=== PATIENT | male | born 2000 | race Caucasian/White ===

== ENCOUNTER → 2018-11-10 13:27 | Outpatient (CLI) | payer OTHER, SELFPAY ==
[2018-11-10 14:36] LABS: Monotest Positive (Negative)
== END ==
PROVIDERS: Visit Provider Physician Assistant
DX: J02.9 Acute pharyngitis, unspecified (principal)
CPT/HCPCS: 86318; 87070; 87147

== ENCOUNTER 2020-02-19 02:48 | Emergency (ER) | payer OTHER, SELFPAY ==
--- NOTE | 2020-02-19 03:03 | DI.RAD.S_ITS ---
PROCEDURE: XR CLAVICLE RT INDICATIONS: right shoulder pain/tenderness TECHNIQUE: 2 views of the clavicle were acquired. COMPARISON: CR, SHOULDER MIN 2VW (RT), 06/05/2012, 11:58. FINDINGS: Bones: No fractures or dislocations. No suspicious bony lesions. Soft tissues: No suspicious soft tissue calcifications. IMPRESSION: No trauma found. Dictated by: Troy Joe M.D. on 02/19/2020 at 8:18 Approved by: Troy Joe M.D. on 02/19/2020 at 8:18
[2020-02-19 03:04] VITALS: BP 147/82; PULSE 73; RESP 16; TEMP 36.9; O2SAT 99
--- NOTE | 2020-02-19 03:05 | ED_ITS ---
HPI - Extremity Injury (Upper) General Chief Complaint: Extremity Injury, Upper Stated Complaint: thinks broke right collerbone Time Seen by Provider: 02/19/20 02:55 Source: patient Mode of arrival: Ambulatory Limitations: no limitations History of Present Illness HPI narrative: 19-year-old male nonsmoker without medical history presents with a chief complaint of right shoulder pain since an injury a few days ago. He states that he was trying to get a large door to open and he forcefully rammed his right shoulder into it in attempt to move it. Since then he has had significant pain in his anterior right shoulder. His pain is worse with motion and improves with rest. He denies numbness, tingling or weakness. He denies other injury and is otherwise well and free of complaint MD complaint: injury to: right and shoulder Onset (ago): day(s) Other Extremity Injury: Right: shoulder Other injuries: none Handedness: right Place: home Relieving factors: rest Exacerbating factors: movement of extremity Context: direct blow Associated symptoms: denies other symptoms Treatments prior to arrival: NSAIDS Related Data Home Medications Medication Instructions Recorded Confirmed No Known Home Medications 11/10/18 11/10/18 Allergies Allergy/AdvReac Type Severity Reaction Status Date / Time No Known Drug Allergies Allergy Verified 11/10/18 13:20 Review of Systems Constitutional Constitutional: Denies chills, Denies fatigue, Denies fever(s), Denies frequent falls, Denies lethargy and Denies weakness Eyes Eyes: Denies change in vision, Denies eye discharge, Denies irritation and Denies loss of vision ENT Ears, Nose, Mouth, and Throat: Denies change in voice, Denies dizziness, Denies neck pain, Denies sore throat and Denies throat swelling Cardiovascular Cardiovascular: Denies chest pain, Denies irregular heart rhythm, Denies lightheadedness, Denies palpitations, Denies dyspnea, Denies dyspnea on exertion and Denies orthopnea Respiratory Respiratory: Denies cough, Denies dyspnea, Denies dyspnea on exertion and Denies wheezing Gastrointestinal Gastrointestinal: Denies abdominal pain, Denies change in bowel habits, Denies diarrhea, Denies nausea and Denies vomiting Genitourinary Genitourinary: Denies hematuria, Denies flank pain, Denies urinary incontinence and Denies urinary urgency Musculoskeletal Musculoskeletal: Denies back pain, Reports limited range of motion, Denies muscle weakness, Denies neck pain, Denies numbness and Denies tingling Integumentary/Breasts Skin/Breast: Denies pruritus, Denies erythema, Denies rash and Denies wounds Neurologic Neurologic: Denies behavioral changes, Denies confusion, Denies dizziness, Denies frequent falls, Denies loss of vision, Denies numbness, Denies tingling and Denies weakness Psychiatric Psychiatric: Denies anxiety, Denies behavioral changes, Denies confusion, Denies depression, Denies homicidal ideation and Denies suicidal ideation Endocrine Endocrine: Denies fatigue, Denies flushing and Denies palpitations Hematologic/Lymphatic Hematologic/Lymphatic: Denies easy bruising Allergic/Immunologic Allergic/Immunologic: Denies urticaria, Denies throat swelling and Denies wheezing Patient History Social History Smoking Status: Never smoker Smoking Status: Never smoker Exam Narrative Exam Narrative: GEN: AOx3 and in mild distress EYES: Pupils are equal, round, and reactive to light and accommodation. Extraoccular muscles are intact bilaterally. There is no subconjunctival hemor rhage or exudate. CHEST: Lungs are clear to auscultation bilaterally and free of wheezes, rales, or rhonchi. Heart rate is regular rhythm, there are no murmurs, clicks, rubs, or gallops. There is no chest wall tenderness. ABD: Abdomen is soft and nontender. There is no guarding or rebound. Bowel sounds are normal in all 4 quadrants. There is no mass or organomegaly. EXT: Decreased ROM secondary to pain, patient points directly at AC joint of R shoulder. No numbness or tingling. No weakness. No obvious deformity. SKIN: Warm, pink, and dry. No erythema or rash Initial Vital Signs Initial Vital Signs: Vital Signs Temperature 98.5 F 02/19/20 03:04 Pulse Rate 73 02/19/20 03:04 Respiratory Rate 16 02/19/20 03:04 Blood Pressure 147/82 H 02/19/20 03:04 Pulse Oximetry 99 02/19/20 03:04 Procedures Orthopedic Splinting/Casting Injury #1: Side: right Course Orders Ordered: ED Orders 02/19/20 03:03 XR clavicle RT Stat Discontinued Medications Hydrocodone Bitart/Acetaminophen (Vicodin 5/325 Prepack) 1 bottle MISC SEEINSTR ONE Stop: 02/19/20 03:20 Last Admin: 02/19/20 03:24 Dose: 1 bottle Documented by: ADDI Vital Signs Vital signs: Vital Signs - 8 hr 02/19/20 03:04 Temperature 98.5 F Pulse Rate 73 Respiratory Rate 16 Blood Pressure 147/82 H Pulse Oximetry 99 MDM - Extremity Injury (Upper) Imaging Data Extremity x-ray #1: Attestation: I personally reviewed and interpreted this imaging study as follows: My Impression: NAP Discharge Plan Departure Patient Disposition: Home Clinical Impression: AC separation Qualifiers: Encounter type: initial encounter Laterality: right Qualified Code(s): S43.101A - Unspecified dislocation of right acromioclavicular joint, initial encounter Discharge Date/Time: 02/19/20 03:40 Instructions: AC Joint Separation Activity Restrictions/Additional Instructions: *You have been diagnosed with [right AC separation] *What to do: *Take medications as directed *Follow up with your primary care provider in 2-3 days, call for an appointment. Let them know you were seen in the Emergency Department and that we ask that you be seen in follow up *Return to ER if you should have any new, worsening or concerning symptoms, Prescriptions: No Action No Known Home Medications RF: 0 Referrals: [facility] [Outside] Pradeep Pool MD [Physician] -
[2020-02-19] MEDS: HYDROCODONE/ACET 5/325 PREPACK 1 BOTTLE MISC (03:24)
== END 2020-02-19 03:40 | disposition home or self-care (01) ==
PROVIDERS: Emergency Provider Emergency Medicine
DX: S43.101A Unspecified dislocation of right acromioclavicular joint, initial encounter (principal); W22.8XXA Striking against or struck by other objects, initial encounter
CPT/HCPCS: 73000; 99283

== ENCOUNTER → 2020-05-11 20:27 | Outpatient (ROUT) | payer OTHER, SELFPAY ==
[2020-05-11 20:45] LABS: Add Manual Diff / Slide Review NO; Basophils Absolute Auto 100 /uL (0-100); Basophils Percent Auto 1.1 % (0-2); Eosinophils Absolute Auto 900 /uL (0-450); Eosinophils Percent Auto 11.4 % (2-4); Hematocrit 42.1 % (41-53); Hemoglobin 14.9 g/dL (13.5-17.5); Lymphocytes Absolute Auto 2700 /uL (1100-4500); Lymphocytes Percent Auto 34.9 % (25-40); Mean Corpuscular HGB Conc 35.4 % (30-36); Mean Corpuscular Hemoglobin 31.6 PG (26-34); Mean Corpuscular Volume 89.1 fL (80-100); Monocytes Absolute Auto 400 /uL (0-900); Monocytes Percent Auto 5.6 % (3-14); Neutrophils Absolute Auto 3600 /uL (1500-7000); Platelet Count 260 X10^3/uL (150-400); Red Blood Cell Count 4.72 X10^6/uL (4.5-5.9); Red Cell Distribution Width 12.7 % (11.6-14.8); White Blood Cell Count 7.6 X10^3/uL (4.5-11.0)
== END ==
PROVIDERS: Visit Provider Student in an Organized Health Care Education/Training Program
DX: D72.829 Elevated white blood cell count, unspecified (principal)
CPT/HCPCS: 85025